=== PATIENT | female | born 1980 | race African-American/Black ===

== ENCOUNTER 2023-04-29 13:38 | Emergency (ER) | payer MEDICAID ==
[~2023-04-29] VITALS: Ht 162.6 cm; Wt 102.3 kg
[2023-04-29 14:05] VITALS: TEMP 98.9
[2023-04-29] MEDS: LIDOCAINE 1% 10 ML VIAL ID ONE (14:40)
[2023-04-29] MEDS: BACITRACIN 0.9 GM PACKET OINTMENT TP ONE (15:35)
[2023-04-29 15:40] VITALS: BP 130/83; PULSE 65; RESP 14
== END 2023-04-29 15:48 | disposition home or self-care (01) ==
LOC: EMS 13:38
DX: S61.211A Laceration without foreign body of left index finger without damage to nail, initial encounter (principal); I10 Essential (primary) hypertension; X58.XXXA Exposure to other specified factors, initial encounter; Y93.89 Activity, other specified; Y92.89 Other specified places as the place of occurrence of the external cause; Y99.8 Other external cause status
CPT/HCPCS: 99282; 12001; J3490